=== PATIENT | male | born 1965 | race Caucasian/White ===

== ENCOUNTER 2017-04-23 17:28 | Emergency (ER) | payer OTHER ==
--- NOTE | 2017-04-23 17:53 | ED Physician Documentation ---
PD HPI URI - Stated complaint Stated Complaint: COUGH,CHEST PX - Chief complaint Chief Complaint: Resp - History obtained from History obtained from: Patient - History of Present Illness Timing - onset: How many days ago (few) Timing duration: Days Timing details: Gradual onset (has had left sinus drainage of purulent material with maxillary fullness. Developing some cough and postnasal drainage. Some anterior fleeting chest pains with coughing. Feeling fullness/tightness anterior chest today.) Associated symptoms: Sinus pain (left), Sore throat, Dry cough, Chest pain, Dyspnea. 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 denies: Swollen tonsils Cardiac: reports: Chest pain / pressure. 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 right lower granulomatous change that has been present for awhile. ) Neuro: None Endocrine/Autoimmune: Type 1 diabetes - Present Medications Home Medications: Ambulatory Orders Medication Instructions Recorded Confirmed Albuterol Sulfate [Proair Hfa 2 puffs IH QID #1 hfa.aer.ad 04/23/17 Inhaler] Cephalexin [Keflex] 500 mg PO TID #21 capsule 04/23/17 Naproxen 375 mg PO BID #15 tablet 04/23/17 guaiFENesin/CODEINE [Robitussin AC] 10 ml PO Q6H PRN #240 ml 04/23/17 - Allergies Allergies/Adverse Reactions: Allergies Allergy/AdvReac Type Severity Reaction Status Date / Time Influenza Virus Vaccines Allergy Unknown Verified 04/23/17 17:46 Mvxuirr-Gsy-Srt Reductase Allergy Unknown Verified 04/23/17 17:46 Inhibitor PD ED PE NORMAL - Vitals Vital signs reviewed: Yes - General General: Alert and oriented X 3, No acute distress, Well developed/nourished - HEENT HEENT: Ears normal, Pharynx benign - Neck Neck: Supple, no meningeal sign, No adenopathy - Cardiac Cardiac: RRR, No murmur - Respiratory Respiratory: No respiratory distress. No: Clear bilaterally (some tightness with just scattered wheezes. No coarse sounds. ) - Abdomen Abdomen: Soft, Non tender - Derm Derm: Normal color, Warm and dry - Extremities Extremities: No edema, No calf tenderness / cord Results - Vitals Vitals: Vital Signs - 24 hr 04/23/17 04/23/17 04/23/17 17:41 18:24 19:18 Temperature 36.6 C 36.3 C L Heart Rate 79 74 70 Respiratory 14 16 18 Rate Blood Pressure 133/75 H 132/75 H 122/71 O2 Saturation 100 97 96 Oxygen O2 Source Room air - EKG (time done) 17:50 Rate: Rate (enter#) (77) Rhythm: NSR [place]: Normal Intervals: Normal [place] QRS: Normal Ischemia: Normal ST segments. No: ST elevation c/w ischemia, ST depression - Rads (name of study) chest Radiology: Prelim report reviewed, EMP read contemporaneously (no acute process seen. ) PD MEDICAL DECISION MAKING - ED course Complexity details: reviewed results (chest appears clear. Has left sinus symptoms and now some cough/wheezing. ), considered differential, d/w patient Departure - Departure Disposition: 01 Home, Self Care Clinical Impression: Upper respiratory tract infection Qualifiers: URI type: unspecified URI Qualified Code(s): J06.9 - Acute upper respiratory infection, unspecified Sinusitis Qualifiers: Sinusitis location: maxillary Chronicity: acute Recurrence: non-recurrent Qualified Code(s): J01.00 - Acute maxillary sinusitis, unspecified Condition: Stable Record reviewed to determine appropriate education?: Yes Instructions: ED Sinusitis Abx Tx, ED Upper Resp Infec Abx Tx Follow-Up: ADRIEL TEIXEIRA DO [Primary Care Provider] - Prescriptions: Cephalexin [Keflex] 500 mg PO TID #21 capsule Naproxen 375 mg PO BID #15 tablet Albuterol Sulfate [Proair Hfa Inhaler] 2 puffs IH QID #1 hfa.aer.ad guaiFENesin/CODEINE [Robitussin AC] 10 ml PO Q6H PRN #240 ml PRN Reason: Cough Comments: Drink lots of fluids. Naproxen twice daily for a week. Cephalexin 3 times a day for a week for presumed infection. Use your albuterol inhaler 2 puffs 4 times a day for the next 7-10 days. Cough medicine if needed. Continue other usual medicines. Recheck if not improved over the next 3-5 days. Discharge Date/Time: 04/23/17 19:47
[2017-04-23] MEDS ORDERED: HYDROcod/ACETAM 5/325 MG TABLET PO STA (18:24)
[2017-04-23] MEDS ORDERED: NAPROXEN 250 MG TABLET PO STA (18:25)
[2017-04-23] MEDS ORDERED: HYDROcod/ACETAM 5/325 MG TABLET ONE (18:50)
[2017-04-23] MEDS ORDERED: NAPROXEN 250 MG TABLET PO ONE (18:50)
--- NOTE | 2017-04-23 19:07 | XRAY Preliminary Report ---
Exam: XR Chest 2 View PA/LAT IMPRESSION: 1. Prior granulomatous process. 2. Otherwise, unremarkable exam. [facility] SITE ID: [id number]
--- NOTE | 2017-04-23 19:11 | XRAY Report ---
EXAM: CHEST RADIOGRAPHY EXAM DATE: 04/23/2017 06:54 p.m. CLINICAL HISTORY: Cough and chest pain anteriorly. COMPARISON: None. TECHNIQUE: 2 views. FINDINGS: Lungs/Pleura: 3 mm calcified granuloma in right mid lung indicating prior granulomatous process. No o ther focal opacities evident. No pleural effusion. No pneumothorax. Normal volumes. Mediastinum: Heart and mediastinal contours are unremarkable. Other: None. IMPRESSION: 1. Prior granulomatous process. 2. Otherwise, unremarkable exam. [facility] Referring Provider Line: [phone] SITE ID: [id number]
[2017-04-23 19:19] VITALS: BP 122/71
== END 2017-04-23 19:47 | disposition home or self-care (01) ==
LOC: ED 17:28
DX: J06.9 Acute upper respiratory infection, unspecified (principal); J01.00 Acute maxillary sinusitis, unspecified; E10.9 Type 1 diabetes mellitus without complications; Z79.4 Long term (current) use of insulin
CPT/HCPCS: 71020; 99283; 99284; A9270